=== PATIENT | male | born 1965 | race Caucasian/White ===

== ENCOUNTER 2022-01-30 01:13 | Day surgery (SDC) | payer OTHER, SELFPAY ==
[2022-01-23 13:46] VITALS: BMI 35.1
[2022-01-30 08:07] VITALS: BP 136/72; PULSE 61; RESP 18; TEMP 36.1; O2SAT 99
[2022-01-30 08:07] LABS: Glucose Point of Care 148 mg/dl (65-105)
[2022-01-30] MEDS: LACTATED RINGERS 1,000 ML 150 ML IV CONT (08:09)
--- NOTE | 2022-01-30 09:11 | PM.HPGS ---
History of Present Illness History of Present Illness Consent: Risks, benefits, and alternatives have been discussed and questions answered. Patient agrees to proceed with procedure. Chief complaint: hx colon polyps Narrative: Armond Agrawal is a 57 year old male Presents for follow-up screening colonoscopy. Patient's current weight appetite bowel movements are normal. Patient denies abdominal pain. He has had no bleeding. Previous colonoscopy more than 5 years ago revealed benign colon polyp. Patient presents today for surveillance colonoscopy. History is noncontributory. Review of Systems Review of Systems: Review of systems noncontributory. [facility] Past Medical History Medical History BMI 30.0-30.9,adult CAD (coronary artery disease) w/ stent 2014 CAD (coronary artery disease) Diabetes History of [place] (myocardial infarction) HLD (hyperlipidemia) Hypertension Sleep apnea Surgical History Surgical History Status post ablation of atrial fibrillation Family History Family History Mother Hypertension Family history of migraine headaches Father Family history of diabetes mellitus in first degree relative Family history of heart disease in male family member before age 55 Acute myocardial infarction, Onset Age: 45 Family history of sleep apnea Diabetes mellitus Family history of cardiovascular disease Grandparent Diabetes mellitus Family history of cardiovascular disease Sibling Hypertension Social History Social History Smoking status: Never smoker Second hand tobacco smoke exposure: No Alcohol intake: current Drinks per week: 8 Alcohol use details: BEER Substance use: never Substance use type: does not use Living arrangements: with family Gender identity (if verbalized by the patient): Male Spiritual care concerns: No Agree to blood products: Yes Meds Home Medications and Allergies Home Medications Medication Instructions Recorded Confirmed Type aspirin 81 mg tablet,delayed 81 mg PO DAILY 11/11/19 01/30/22 History release carvedilol 6.25 mg tablet 6.25 mg PO Q12H 11/11/19 01/30/22 History lisinopril 40 mg tablet 40 mg PO DAILY 11/11/19 01/30/22 History spironolactone 25 mg tablet 25 mg PO DAILY 04/28/20 01/30/22 History evolocumab 140 mg/mL subcutaneous 140 mg subcut .q2w 11/14/20 01/30/22 History pen injector (Ivan Roa) metformin 500 mg tablet 1,000 mg PO BID #360 tabs 06/05/21 01/30/22 Rx sildenafil 100 mg tablet (Viagra) 100 mg PO DAILY PRN sexual 06/05/21 01/30/22 Rx activity #27 tabs apixaban 5 mg tablet (Eliquis) 5 mg PO BID 01/23/22 01/30/22 History atorvastatin 40 mg tablet 40 mg PO DAILY 01/23/22 01/30/22 History Allergies Allergy/AdvReac Type Severity Reaction Status Date / Time No Known Allergies Allergy Verified 01/30/22 08:05 Vital Signs Vital Signs - 24 hr 01/30/22 08:07 Temperature 96.9 F L Pulse Rate 61 Respiratory Rate 18 Blood Pressure 136/72 Pulse Oximetry 99 Oxygen Delivery Room Air Exam Narrative: Physical exam reveals patient to be alert. Vital signs stable. HEENT exam is unremarkable. Patient is anicteric. Lungs are clear to auscultation and percussion. Heart is without murmur or extra sounds. Abdomen bowel sounds are present soft nontender with no organomegaly. Digital external rectal exam normal. Assessment and Plan Assessment and plan (1) History of colon polyps: Code(s): Z86.010 - Personal history of colonic polyps Status: Acute Assessment and Plan: Patient has a history of colon polyps by previous colonoscopy. Colonoscopy to be performed today for follow-up. Further recommendations will be given after endoscopy.
--- NOTE | 2022-01-30 09:13 | WPDANESEPPF ---
Anes - Initial Pre Proc Eval Procedure: Operation Date: 01/30/22 09:15 Proposed Procedures p Screening Colonoscopy - Dharmesh Lanza MD Date/Time: 01/30/22 09:13 Surgeon: Dharmesh Lanza MD Pre Op Diagnosis: hx colon polyps Patient Data Age: 57 Gender: M Height: 1.78 m Weight: 108.1 kg Last Vital Signs Temp 96.9 F L 01/30/22 08:07 Pulse 61 01/30/22 08:07 Resp 18 01/30/22 08:07 BP 136/72 01/30/22 08:07 Pulse Ox 99 01/30/22 08:07 O2 Del Method Room Air 01/30/22 08:07 Allergies Allergy/AdvReac Type Severity Reaction Status Date / Time No Known Allergies Allergy Verified 01/30/22 08:05 Home Medications Medication Instructions Recorded Confirmed Type aspirin 81 mg tablet,delayed 81 mg PO DAILY 11/11/19 01/30/22 History release carvedilol 6.25 mg tablet 6.25 mg PO Q12H 11/11/19 01/30/22 History lisinopril 40 mg tablet 40 mg PO DAILY 11/11/19 01/30/22 History spironolactone 25 mg tablet 25 mg PO DAILY 04/28/20 01/30/22 History evolocumab 140 mg/mL subcutaneous 140 mg subcut .q2w 11/14/20 01/30/22 History pen injector (Repatha SureIanick) metformin 500 mg tablet 1,000 mg PO BID #360 tabs 06/05/21 01/30/22 Rx sildenafil 100 mg tablet (Viagra) 100 mg PO DAILY PRN sexual 06/05/21 01/30/22 Rx activity #27 tabs apixaban 5 mg tablet (Eliquis) 5 mg PO BID 01/23/22 01/30/22 History atorvastatin 40 mg tablet 40 mg PO DAILY 01/23/22 01/30/22 History Laboratory Tests 01/30/22 08:03 POC Capillary Glucose 148 mg/dl H mg/dl (65-105) Patient hx anesthesia problems: none Family hx anesthesia problems: none Results Review: All pre-operative results and documents have been reviewed as part of the pre-operative evaluation. [facility] Past Medical History Medical History BMI 30.0-30.9,adult CAD (coronary artery disease) w/ stent 2014 CAD (coronary artery disease) Diabetes History of [place] (myocardial infarction) HLD (hyperlipidemia) Hypertension Sleep apnea Surgical History Surgical History Status post ablation of atrial fibrillation Family History Family History Mother Hypertension Family history of migraine headaches Father Family history of diabetes mellitus in first degree relative Family history of heart disease in male family member before age 55 Acute myocardial infarction, Onset Age: 45 Family history of sleep apnea Diabetes mellitus Family history of cardiovascular disease Grandparent Diabetes mellitus Family history of cardiovascular disease Sibling Hypertension Social History Social History Smoking status: Never smoker Second hand tobacco smoke exposure: No Alcohol intake: current Drinks per week: 8 Alcohol use details: BEER Substance use: never Substance use type: does not use Living arrangements: with family Gender identity (if verbalized by the patient): Male Spiritual care concerns: No Agree to blood products: Yes Anes - Eval Final PreProcedure Day of Procedure 01/30/22 09:13 Patient weight: obese Heart: regular rate and rhythm Lungs: clear to auscultation Neurological: alert and oriented Last oral intake: >/= 8 hours ASA classification: III Emergent: no Anesthetic plan: proceed Anesthesia type and monitoring: general GIVS and standard monitoring Results Review: All pre-operative results and documents have been reviewed as part of the pre-operative evaluation. Informed Consent: The patient's anesthetic plan and its attendant risks and benefits were discussed with the patient/family/POA. Questions were solicited and answers provided to the satisfaction of the patient/family/POA.
[2022-01-30] MEDS: SIMETHICONE ORAL SUSPENSION 20 MG/0.3 ML 30 ML BOTTLE 0.6 ML IRRIGATION (09:58)
[2022-01-30 10:20] VITALS: BP 104/70; PULSE 59; RESP 22; O2SAT 96
[2022-01-30 10:30] VITALS: BP 121/79; PULSE 54; RESP 20; O2SAT 100
[2022-01-30 10:40] VITALS: BP 118/80; PULSE 56; RESP 17; O2SAT 99
== END 2022-01-30 10:49 | disposition home or self-care (01) ==
PROVIDERS: PCP Family Medicine; Visit Provider Internal Medicine Gastroenterology
PROC: 0DJD8ZZ Inspection of Lower Intestinal Tract, Via Natural or Artificial Opening Endoscopic (ICD-10-PCS; CPT 45378; principal; 2022-01-30 09:15)
DX: Z12.11 Encounter for screening for malignant neoplasm of colon (principal); D12.0 Benign neoplasm of cecum; K64.8 Other hemorrhoids; Z79.01 Long term (current) use of anticoagulants; Z79.82 Long term (current) use of aspirin; Z79.84 Long term (current) use of oral hypoglycemic drugs; I25.10 Atherosclerotic heart disease of native coronary artery without angina pectoris; E11.9 Type 2 diabetes mellitus without complications; I25.2 Old myocardial infarction; I10 Essential (primary) hypertension; E78.5 Hyperlipidemia, unspecified; G47.30 Sleep apnea, unspecified; E66.9 Obesity, unspecified; Z68.34 Body mass index [BMI] 34.0-34.9, adult
CPT/HCPCS: 45380; 45381; 82948; 88305; J2001; J2704; J7120

== ENCOUNTER 2022-04-12 07:55 | Outpatient (CLI) | payer OTHER, SELFPAY ==
[2022-04-12 09:13] LABS: Anion Gap 6 mmol/L (8-16); Blood Urea Nitrogen 17 mg/dL (9-20); Calcium 9.4 mg/dL (8.4-10.2); Carbon Dioxide 31 mmol/L (22-30); Chloride 102 mmol/L (98-107); Estimated Glomerular Filt Rate > 60; Glucose 138 mg/dL (65-110); Potassium 5.2 mmol/L (3.4-5.0); Sodium 139 mmol/L (137-145)
[2022-04-12 09:18] LABS: Hematocrit 42.2 % (42.0-52.0); Hemoglobin 13.7 g/dL (14.0-18.0)
[2022-04-12 09:45] LABS: Carcinoembryonic Antigen 4.5 ng/mL (0.0-3.0)
== END 2022-04-12 07:56 | disposition home or self-care (01) ==
PROVIDERS: Anesthesiology; PCP Family Medicine; Visit Provider Surgery
DX: E11.9 Type 2 diabetes mellitus without complications (principal); D12.6 Benign neoplasm of colon, unspecified
CPT/HCPCS: 36415; 80048; 82378; 85014; 85018; 86850; 86900; 86901

== ENCOUNTER 2022-04-25 13:35 | Inpatient (IN) | payer OTHER, SELFPAY ==
[2022-04-12 07:53] VITALS: BP 128/80; PULSE 56; RESP 20; TEMP 36.8; O2SAT 99; BMI 36.0
--- NOTE | 2022-04-12 07:54 | PC.NURSE ---
PRE-OP INSTRUCTIONS, PLEASE READ CAREFULLY Report to the Outpatient Waiting Room, entrance under the green pavilion located off [facility], at time _0600_ on date _04/25/22_. Planned Procedure Time: _0730_. PACK A SMALL OVERNIGHT BAG AND LEAVE IN THE CAR Time changes happen often and if your time is changed the preop area will call you the afternoon before. - You and your visitor will be asked to self-screen and do not enter if you have any COVID symptoms. - Only one visitor is requested with a max of two and NO children visitors are allowed at this time. - The patient visitor may be requested to leave or wait in car when not with patient due to distancing restrictions. - A mask is optional within the hospital. -VISITING HOURS 8AM-8PM Patients may have clear liquids (water, carbonated beverages, clear teas, apple juice) until 3 hours prior to surgery (0430 AM) with a maximum of 20 ounces. - No food from midnight until time of surgery Take the following medications with a SIP of water the morning of surgery: _CARVEDILOL, ASPIRIN-PER _ Medications to discontinue per VALUATION CONSULTANT -_ELIQUIS 3 DAYS PRIOR TO SURGERY, Date to take last dose 04/21/22_ Please no deodorant, or body powder the day of surgery. No jewelry (including any body piercings) or valuables the day of surgery, leave them at home. Please take a shower or bath the night before, or the morning of, surgery with an antibacterial soap. Wear comfortable, loose fitting clothing. - Jewelry must be removed prior to entering the operating room. Rings and piercings that are not removed may be cut off. - The hospital will not accept responsibility for valuables. - Please leave all valuables, including medications, at home the day of surgery. If you are going home after surgery, a licensed petroleum transport driver must drive you home. - NO public transportation without another adult if you receive anesthesia. - We recommend that an adult stay with you for 24 hours following discharge. - We also recommend that you do not drive, make important decision, drink alcoholic beverages, or take any drugs that were not prescribed by your health care provider for at least 24 hours after your discharge time. Follow any additional instructions given to you from your surgeon. DIET, BOWEL PREP, PRE-OP ANTIBIOTICS, HIBICLENS SHOWER NIGHT BEFORE AND AM OF SURGERY If you or anyone in your household have experienced Covid symptoms in the past week, please notify your surgeon or the nurse liaison at the phone number below for possible testing. Instructions given to _PATIENT_and asked if any additional questions and then verbalized understanding. Patient advised to call surgeon office or pre surgery nurse liaison [phone] if any additional questions.
--- NOTE | 2022-04-24 09:22 | WPDANESEPPF ---
Anes - Initial Pre Proc Eval Procedure: Operation Date: 04/25/22 07:30 Proposed Procedures p Laparoscopic Right Hemicolectomy Davinci Assisted, - Indra Flood DO s Open Umbilical Hernia Repair - Indra Flood DO Date/Time: 04/24/22 09:22 Surgeon: Inrda Flood DO Pre Op Diagnosis: tubular adeonoma of colon, umbilical hernia Patient Data Age: 57 Gender: M Height: 1.78 m Weight: 113.9 kg Last Vital Signs Temp 36.8 C 04/12/22 07:53 Pulse 56 L 04/12/22 07:53 Resp 20 04/12/22 07:53 BP 128/80 04/12/22 07:53 Pulse Ox 99 04/12/22 07:53 O2 Del Method Room Air 04/12/22 07:53 Allergies Allergy/AdvReac Type Severity Reaction Status Date / Time No Known Allergies Allergy Verified 04/25/22 06:31 Home Medications Medication Instructions Recorded Confirmed Type aspirin 81 mg tablet,delayed 81 mg PO DAILY 11/11/19 04/25/22 History release carvedilol 6.25 mg tablet 6.25 mg PO Q12H 11/11/19 04/25/22 History lisinopril 40 mg tablet 40 mg PO DAILY 11/11/19 04/25/22 History spironolactone 25 mg tablet 25 mg PO DAILY 04/28/20 04/25/22 History evolocumab 140 mg/mL subcutaneous 140 mg subcut .q2w 11/14/20 04/25/22 History pen injector (Ivan Roa) metformin 500 mg tablet 1,000 mg PO BID #360 tabs 06/05/21 04/25/22 Rx sildenafil 100 mg tablet (Viagra) 100 mg PO DAILY PRN sexual 06/05/21 04/12/22 Rx activity #27 tabs apixaban 5 mg tablet (Eliquis) 5 mg PO BID 01/23/22 04/25/22 History atorvastatin 40 mg tablet 40 mg PO DAILY 01/23/22 04/25/22 History erythromycin 500 mg tablet See Rx Instructions .Route 03/02/22 04/25/22 Rx .COMPLEX #6 tabs Patient hx anesthesia problems: none Family hx anesthesia problems: none Results Review: All pre-operative results and documents have been reviewed as part of the pre-operative evaluation. [facility] Past Medical History Medical History (Updated 04/24/22 @ 09:24 by Don Sun DO) A-fib BMI 30.0-30.9,adult CAD (coronary artery disease) w/ stent 2014 CAD (coronary artery disease) Diabetes Diabetes type 2, controlled GERD (gastroesophageal reflux disease) History of [place] (myocardial infarction) HLD (hyperlipidemia) Hypertension CRISTINA (obstructive sleep apnea) CPAP Phrenic nerve lesion s/p cardiac ablation Sleep apnea Surgical History Surgical History (Updated 04/24/22 @ 09:24 by Don Sun DO) History of coronary artery stent placement x3, 2014 Status post ablation of atrial fibrillation Family History Family History Mother Hypertension Family history of migraine headaches Father Family history of diabetes mellitus in first degree relative Family history of heart disease in male family member before age 55 Acute myocardial infarction, Onset Age: 45 Family history of sleep apnea Diabetes mellitus Family history of cardiovascular disease Grandparent Diabetes mellitus Family history of cardiovascular disease Sibling Hypertension Social History Social History Smoking status: Never smoker Second hand tobacco smoke exposure: No Alcohol intake: current Drinks per week: 8 Alcohol use details: GABBI Substance use: never Substance use type: does not use Living arrangements: with family Gender identity (if verbalized by the patient): Male Spiritual care concerns: No Agree to blood products: Yes Anes - Eval Final PreProcedure Day of Procedure 04/24/22 09:22 Patient weight: obese Heart: regular rate and rhythm Lungs: clear to auscultation Airway: Mallampati scale class II Neurological: alert and oriented Last oral intake: >/= 8 hours ASA classification: III Emergent: no Anesthetic plan: proceed Anesthesia type and monitoring: general ETT and standard monitoring Results Review: All pre-operative results and documents have been revie
[2022-04-25] VITALS (18 sets, daily range): BP systolic 96–138; BP diastolic 57–79; PULSE 66–93; RESP 16–20; TEMP 36.1–37.1; O2SAT 91–100; BMI 34.4
[2022-04-25] MEDS: ACETAMINOPHEN 500 MG TABLET 1000 MG PO ×3 (06:33→23:48)
[2022-04-25] MEDS: KETOROLAC 15 MG/ML VIAL (*BKC) IV PUSH (07:12)
[2022-04-25] MEDS: LACTATED RINGERS 1,000 ML 30 ML IV CONT ×2 (07:12→11:14)
--- NOTE | 2022-04-25 07:20 | WPDHPUPDATE1 ---
History and Physical Update Update Date/Time: 04/25/22 07:20 History and Physical has been reviewed, including an updated exam of the patient. There are NO changes in the patient's condition. Risks, benefits, and alternatives have been discussed and questions answered. Patient agrees to proceed with procedure.
[2022-04-25 07:21] LABS: Glucose Point of Care 163 mg/dl (65-105)
--- NOTE | 2022-04-25 07:21 | PM.IMHP ---
H&P: HPI History of Present Illness Date/Time: 04/25/22 07:21 Chief Complaint: adenoma of cecum Narrative: 57 yo man presents for right hemicolectomy for a cecal polyp. He also has an umbilical hernia. Review of Systems Review of Systems: All systems reviewed & are unremarkable except as noted in HPI and below Constitutional: Constitutional: Denies chills, Denies fever(s), Denies headache(s) and Denies weight loss Eyes: Eyes: Denies change in vision ENT: Denies dizziness, Denies headache(s), Denies neck mass and Denies throat swelling Cardiovascular: Cardiovascular: Denies chest pain, Denies lightheadedness and Denies dyspnea Respiratory: Respiratory: Denies cough, Denies dyspnea and Denies wheezing Gastrointestinal: Gastrointestinal: Denies abdominal pain, Denies change in bowel habits, Denies nausea and Denies vomiting Genitourinary: Genitourinary: Denies hematuria and Denies dysuria Musculoskeletal: Musculoskeletal: Reports as per HPI Integumentary/Breasts: Skin/Breast: Reports as per HPI Neurologic: Denies dizziness and Denies headache(s) Allergic/Immunologic: Allergic/Immunologic: Denies throat swelling and Denies wheezing [facility] Past Medical History Medical History (Updated 04/24/22 @ 09:24 by Don Sun DO) A-fib BMI 30.0-30.9,adult CAD (coronary artery disease) w/ stent 2014 CAD (coronary artery disease) Diabetes Diabetes type 2, controlled GERD (gastroesophageal reflux disease) History of [place] (myocardial infarction) HLD (hyperlipidemia) Hypertension CRISTINA (obstructive sleep apnea) CPAP Phrenic nerve lesion s/p cardiac ablation Sleep apnea Surgical History Surgical History (Updated 04/24/22 @ 09:24 by Don Sun DO) History of coronary artery stent placement x3, 2014 Status post ablation of atrial fibrillation Family History Family History Mother Hypertension Family history of migraine headaches Father Family history of diabetes mellitus in first degree relative Family history of heart disease in male family member before age 55 Acute myocardial infarction, Onset Age: 45 Family history of sleep apnea Diabetes mellitus Family history of cardiovascular disease Grandparent Diabetes mellitus Family history of cardiovascular disease Sibling Hypertension Social History Social History Smoking status: Never smoker Second hand tobacco smoke exposure: No Alcohol intake: current Drinks per week: 8 Alcohol use details: BEERS Substance use: never Substance use type: does not use Living arrangements: with family Gender identity (if verbalized by the patient): Male Spiritual care concerns: No Agree to blood products: Yes Meds Home Medications and Allergies Home Medications Medication Instructions Recorded Confirmed Type aspirin 81 mg tablet,delayed 81 mg PO DAILY 11/11/19 04/25/22 History release carvedilol 6.25 mg tablet 6.25 mg PO Q12H 11/11/19 04/25/22 History lisinopril 40 mg tablet 40 mg PO DAILY 11/11/19 04/25/22 History spironolactone 25 mg tablet 25 mg PO DAILY 04/28/20 04/25/22 History evolocumab 140 mg/mL subcutaneous 140 mg subcut .q2w 11/14/20 04/25/22 History pen injector (Ivan Roa) metformin 500 mg tablet 1,000 mg PO BID #360 tabs 06/05/21 04/25/22 Rx sildenafil 100 mg tablet (Viagra) 100 mg PO DAILY PRN sexual 06/05/21 04/12/22 Rx activity #27 tabs apixaban 5 mg tablet (Eliquis) 5 mg PO BID 01/23/22 04/25/22 History atorvastatin 40 mg tablet 40 mg PO DAILY 01/23/22 04/25/22 History erythromycin 500 mg tablet See Rx Instructions .Route 03/02/22 04/25/22 Rx .COMPLEX #6 tabs Allergies Allergy/AdvReac Type Severity Reaction Status Date / Time No Known Allergies Allergy Verified 04/25/22 06:31 Vital Signs Vital Signs - 24 hr 04/25/22 07:13 Temperature 37.1 C
[2022-04-25] MEDS: ceFAZolin 2 GM/D5W 50 ML 2 GM/50 ML BAG IVPB (07:32)
[2022-04-25] MEDS: metroNIDAZOLE 500 MG/ISO 100ML 500 MG/100 ML BAG 100 MG IVPB (07:45)
[2022-04-25] MEDS: INDOCYANINE GREEN 25 MG VIAL IV PUSH (09:32)
--- NOTE | 2022-04-25 10:52 | W.PM.PROC2 ---
Procedure Note - Detailed Date of Procedure 04/25/22 Pre-op Diagnosis tubular adeonoma of colon, umbilical hernia Post-op Diagnosis Same Procedure Performed 1. Laparoscopic right hemicolectomy with ileocolic anastomosis, da Chinyere assisted 2. Open 2cm umbilical hernia repair Surgeon Indra Flood, DO Anesthesia General and Local (Exparel) Indications This is a 57-year-old man who presented with a cecal polyp found on colonoscopy recently. He underwent colonoscopy on 01/30/2022 was found to have a large polyp at the cecum. Biopsies showed evidence of tubular adenoma. Discussions were made with the patient about treatment options and decision was made to proceed with robotic assisted laparoscopic right hemicolectomy. Patient also had a small umbilical hernia and decision was made to proceed with umbilical hernia repair at the same time. Findings Robotic assisted laparoscopic right hemicolectomy was performed. The tattooed region was identified on the cecum. No other intra-abdominal abnormalities were noted. A high ligation the ileocolic pedicle was performed. Once adequate mobilization was performed and the mesocolon and mesentery was taken down to the point of transection, ICG was then used to confirm adequate perfusion to the proximal and distal resection locations. An isoperistaltic [id number] ileocolic anastomosis was performed. ICG was then also used to confirm adequate perfusion to the anastomosis prior to closure. The specimen was delivered through the umbilical hernia with a wound protector. I did have to extend the fascia about 1 cm cephalad to allow for extraction of the specimen. The umbilical hernia measured about 2 cm. This was repaired primarily using 0 Ethibond [id number] sutures. The right colon was sent to the lab for pathology. Description of Procedure Procedure as well as risks, benefits, and alternatives were discussed with the patient.? Written consent was obtained and placed in chart prior to procedure.? Patient was brought back to surgical suite.? He was placed supine on operating table.? Time-out was done to confirm patient and procedure.? He was then intubated by the anesthesia department.? His abdomen was prepped and draped in sterile fashion using chlorhexidine prep.? An 8 mm incision was made in the left upper quadrant and a 5 mm Optiview trocar was advanced through the abdominal layers under direct visualization.? Once inside the abdominal cavity, carbon dioxide insufflation was used to create a pneumoperitoneum.? Camera was inserted in the abdomen was inspected.? The patient was placed in 8 degree reverse Trendelenburg and 10? rotated left an 8 mm incision was made in the suprapubic region in midline and an 8 mm trocar was inserted under direct visualization another 8 mm incision was made in the umbilical region just inferior into the left of the umbilicus and an 8 mm trocar was inserted under direct visualization.? A 12 mm incision was made in the left lateral abdomen and a 12 mm trocar was inserted under direct visualization.? An 8 mm incision was made in the left lower quadrant and an 8 mm assist port was placed under direct visualization.? The 5 mm port was then removed and exchanged for an 8 mm port.? The robotic arms were then brought up to the patient's bedside and secured to the ports.? The camera and instruments were then inserted.? I then moved over to the robotic console and took control of the camera and instruments.? Thorough inspection was made around the abdominal cavity.? The omentum was then reflected cephalad over the transverse colon.? The area near the ileocecal valve was grasped and retracted anterior and laterally to tent up the ileocolic pedicle.? Scissors with electrocautery were then used to perform the medial to lateral dissection.? I entered into the avascular plane just inferior to the ileocolic pedicle and carefully dissected cephalad to identify the duodenum.? Once the duodenum was identified and
[2022-04-25 11:23] LABS: Glucose Point of Care 180 mg/dl (65-105)
--- NOTE | 2022-04-25 12:23 | SUR.PHASEI ---
Patient meets PACU discharge criteria, unit bed unavailable at this time. Patient placed in extended recovery status.
--- NOTE | 2022-04-25 13:47 | ADMGEN ---
This patient, Armond Agrawal, was admitted to Medical Room 342-01. Patient/family oriented to hospital policies and general routines including ID bracelet, bed and alarms, visiting hours, pain management, procedures, bathroom and other care routines, personal items, smoking policy, room service/diet, and visiting hours. Information on how to activate the Rapid Response Team has been discussed. Patient/Family are encouraged to report perceived risks to care and to ask questions if they do not understand what they are told or what they should do.
[2022-04-25] MEDS: LACTATED RINGERS 1,000 ML 100 ML IV CONT (14:10)
[2022-04-25] MEDS: oxyCODONE HCL (*CRX) 5 MG TAB IR PO ×2 (15:28→20:10)
[2022-04-25 17:16] LABS: Glucose Point of Care 203 mg/dl (65-105)
[2022-04-25] MEDS: carvediloL 6.25 MG TABLET PO (20:10)
[2022-04-25 20:56] LABS: Glucose Point of Care 243 mg/dl (65-105)
[2022-04-26] MEDS: LACTATED RINGERS 1,000 ML 100 ML IV CONT (00:30)
[2022-04-26 04:12] VITALS: BP 124/68; PULSE 73; RESP 18; TEMP 36.2; O2SAT 96
[2022-04-26 05:58] LABS: Basophils Percent Auto 0.2 % (0.2-1.2); Hematocrit 39.4 % (42.0-52.0); Hemoglobin 13.2 g/dL (14.0-18.0); Immature Granulocyte Absolute 0.04 K/mm3 (0.00-0.031); Immature Granulocyte Percent A 0.3 % (0-0.5); Lymphocytes Absolute Auto 1.04 K/mm3 (0.9-3.2); Lymphocytes Percent Auto 8.8 % (18.3-44.2); Mean Corpuscular HGB Conc 33.5 g/dl (32-36); Mean Corpuscular Hemoglobin 30.7 pg (26-34); Mean Corpuscular Volume 91.6 fl (80-100); Mean Platelet Volume 10.7 fl (7.4-10.4); Monocytes Absolute Auto 1.4 K/mm3 (0.1-0.6); Monocytes Percent Auto 11.7 % (2.6-8.5); Neutrophils Absolute Auto 9.3 K/mm3 (1.3-6.7); Platelet Count Result 200 k/mm3 (150-375); Red Cell Distribution Width 13.5 % (11.5-14.5); White Blood Count 11.8 K/mm3 (4.5-10.0)
[2022-04-26] MEDS: ACETAMINOPHEN 500 MG TABLET 1000 MG PO ×3 (06:01→17:33)
[2022-04-26 06:14] LABS: Anion Gap 6 mmol/L (8-16); Blood Urea Nitrogen 13 mg/dL (9-20); Calcium 8.7 mg/dL (8.4-10.2); Carbon Dioxide 27 mmol/L (22-30); Chloride 103 mmol/L (98-107); Estimated CRCL calculation 125 ml/min; Estimated Glomerular Filt Rate > 60; Glucose 152 mg/dL (65-110); Potassium 4.4 mmol/L (3.4-5.0); Sodium 136 mmol/L (137-145)
[2022-04-26] MEDS: ATORVASTATIN 40 MG TABLET PO (08:29)
[2022-04-26 08:30] VITALS: PULSE 81
[2022-04-26] MEDS: ASPIRIN 81 MG ENTERIC TABLET PO (08:30)
[2022-04-26] MEDS: SPIRONOLACTONE 25 MG TABLET PO (08:30)
[2022-04-26] MEDS: ENOXAPARIN 40 MG/0.4 ML SYRINGE SUB-Q (08:30)
[2022-04-26] MEDS: carvediloL 6.25 MG TABLET PO (08:30)
[2022-04-26 08:59] LABS: Glucose Point of Care 115 mg/dl (65-105)
--- NOTE | 2022-04-26 11:09 | PM.PNGS ---
Progress Note: A&P Assessment and Plan (1) Tubular adenoma of colon: Code(s): D12.6 - Benign neoplasm of colon, unspecified Status: Acute Assessment and Plan: Doing well on POD#1 Advance to full liquids, then soft diet for dinner Increase activity Await return of bowel function Final path pending (2) Umbilical hernia without mention of obstruction or gangrene: Code(s): K42.9 - Umbilical hernia without obstruction or gangrene Status: Acute Assessment and Plan: Repaired with colon resection (3) A-fib: Code(s): I48.91 - Unspecified atrial fibrillation Status: Acute (4) [facility] current use of anticoagulant: Code(s): 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 Subjective Subjective Date/Time Seen: 04/26/22 11:09 Interval history: Tolerating clear liquids. Pain controlled. No fevers. No BM or flatus yet. Ambulating without much difficulty. Exam GI: Inspection: incision (intact with glue) GI Palp: Yes Soft to palpation, Yes Tenderness to palpation present (GI) (incisional) and No Guarding due to palpation present (GI) Percussion: Yes normal to percussion Auscultation: normal bowel sounds Objective Data Vital Signs Vital Signs: Vital Signs - 24 hr 04/25/22 11:14 04/25/22 11:30 04/25/22 11:45 Temperature 36.5 C Pulse Rate 86 83 76 Respiratory Rate 16 17 18 Blood Pressure 116/63 96/57 L 100/64 Pulse Oximetry 98 100 94 Oxygen Delivery Simple Face Mask Simple Face Mask Room Air Oxygen Flow Rate 6 8 04/25/22 12:00 04/25/22 12:15 04/25/22 12:30 Temperature Pulse Rate 80 83 87 Respiratory Rate 18 18 16 Blood Pressure 100/62 103/59 L 103/64 Pulse Oximetry 91 97 96 Oxygen Delivery Room Air Nasal Cannula Nasal Cannula Oxygen Flow Rate 2 2 04/25/22 13:00 04/25/22 13:30 04/25/22 13:55 Temperature Pulse Rate 91 89 89 Respiratory Rate 16 20 20 Blood Pressure 111/73 119/73 Pulse Oximetry 98 98 98 Oxygen Delivery Nasal Cannula Nasal Cannula Nasal Cannula Oxygen Flow Rate 2 2 2 04/25/22 13:50 04/25/22 14:05 04/25/22 14:35 Temperature 36.2 C L 36.3 C L 36.3 C L Pulse Rate 84 86 93 Respiratory Rate 16 18 16 Blood Pressure 128/71 138/79 119/68 Pulse Oximetry 96 98 98 Oxygen Delivery Oxygen Flow Rate 04/25/22 15:35 04/25/22 20:10 04/25/22 20:00 Temperature 36.1 C L Pulse Rate 89 80 80 Respiratory Rate 16 16 Blood Pressure 111/65 Pulse Oximetry 96 96 Oxygen Delivery Room Air Oxygen Flow Rate 04/25/22 20:41 04/25/22 23:53 04/26/22 04:12 Temperature 36.3 C L 36.2 C L 36.2 C L Pulse Rate 90 83 73 Respiratory Rate 16 18 18 Blood Pressure 124/70 120/75 124/68 Pulse Oximetry 97 95 96 Oxygen Delivery Oxygen Flow Rate 04/26/22 08:30 04/26/22 08:00 Temperature Pulse Rate 81 Respiratory Rate Blood Pressure Pulse Oximetry Oxygen Delivery Room Air Oxygen Flow Rate Intake/Output Intake/Output: Intake & Output 04/23/22 04/24/22 04/25/22 04/26/22 23:59 23:59 23:59 23:59 Intake Total 1750 1880 Output Total 1200 Balance 1750 680 Meds/Results Medications: Active Medications Generic Name Dose Route Start Last Admin Trade Name Freq PRN Reason Stop Dose Admin Acetaminophen 1,000 mg 04/25/22 18:00 04/26/22 06:01 Acetaminophen 500 Mg Tablet PO 1,000 mg Q6HR VELVET Administration Aspirin 81 mg 04/26/22 09:00 04/26/22 08:30 Aspirin 81 Mg Enteric Tablet PO 81 mg DAILY VELVET Administration Atorvastatin Calcium 40 mg 04/26/22 09:00 04/26/22 08:29 Atorvastatin 40 Mg Tablet PO 40 mg DAILY VELVET Administration Carvedilol 6.25 mg 04/25/22 21:00 04/26/22 08:30 Carvedilol 6.25 Mg Tablet PO 6.25 mg Q12H VELVET Administration Enoxaparin Sodium 40 mg 04/26/22 09:00 04/26/22 08:30 Enoxaparin 40 Mg/0.4
[2022-04-26 12:18] LABS: Glucose Point of Care 163 mg/dl (65-105)
--- NOTE | 2022-04-26 13:28 | WPDANESPN ---
Anes - Prog Note Post-Op Date/Time: 04/26/22 13:28 Cardiovascular status: normal Respiratory status: normal Airway patency: baseline Mental status: baseline Post-Op hydration status: normal Vital Signs: Last Vital Signs Temp 36.2 C L 04/26/22 04:12 Pulse 81 04/26/22 08:30 Resp 18 04/26/22 04:12 BP 124/68 04/26/22 04:12 Pulse Ox 96 04/26/22 04:12 O2 Del Method Room Air 04/26/22 08:00 O2 Flow Rate 2 04/25/22 13:55 Pain Score (VAS): 05/25 I/O: Intake & Output 04/25/22 04/26/22 04/26/22 23:59 07:59 15:59 Intake Total 800 1400 480 Output Total 1200 Balance 800 200 480 Laboratory Tests 04/26/22 05:49 04/26/22 05:49 04/25/22 04/25/22 04/26/22 17:14 20:44 05:49 WBC 11.8 H RBC 4.30 L Hgb 13.2 L Hct 39.4 L MCV 91.6 MCH 30.7 MCHC 33.5 RDW 13.5 Plt Count 200 MPV 10.7 H Immature Gran % (Auto) 0.3 Neut % (Auto) 79.0 H Lymph % (Auto) 8.8 L [place] % (Auto) 11.7 H Eos % (Auto) 0.0 Baso % (Auto) 0.2 Lymph # (Auto) 1.04 [place] # (Auto) 1.4 H Eos # (Auto) 0.0 Baso # (Auto) 0.0 Abs Immat Gran (auto) 0.04 H Absolute Neuts (auto) 9.3 H Absolute Nucleated RBC 0.0 Nucleated RBC % 0.0 Sodium Potassium Chloride Carbon Dioxide Anion Gap BUN Creatinine Estim Creat Clear Calc Estimated GFR Glucose POC Capillary Glucose 203 H 243 H Calcium 04/26/22 04/26/22 04/26/22 05:49 08:55 12:15 WBC RBC Hgb Hct MCV MCH MCHC RDW Plt Count MPV Immature Gran % (Auto) Neut % (Auto) Lymph % (Auto) [place] % (Auto) Eos % (Auto) Baso % (Auto) Lymph # (Auto) [place] # (Auto) Eos # (Auto) Baso # (Auto) Abs Immat Gran (auto) Absolute Neuts (auto) Absolute Nucleated RBC Nucleated RBC % Sodium 136 L Potassium 4.4 Chloride 103 Carbon Dioxide 27 Anion Gap 6 L BUN 13 Creatinine 0.70 Estim Creat Clear Calc 125 Estimated GFR > 60 Glucose 152 H POC Capillary Glucose 115 H 163 H Calcium 8.7 Post-procedural complaints: none Patient Feedback: Patient satisfied with anesthetic care.
--- NOTE | 2022-04-26 13:34 | P.PNAN_ITS ---
Anes - Prog Note Post-Op Date/Time: 04/26/22 13:34 Cardiovascular status: normal Respiratory status: normal Airway patency: baseline Mental status: baseline Post-Op hydration status: normal Vital Signs: Last Vital Signs Temp 36.2 C L 04/26/22 04:12 Pulse 81 04/26/22 08:30 Resp 18 04/26/22 04:12 BP 124/68 04/26/22 04:12 Pulse Ox 96 04/26/22 04:12 O2 Del Method Room Air 04/26/22 08:00 O2 Flow Rate 2 04/25/22 13:55 Pain Score (VAS): 0 I/O: Intake & Output 04/25/22 04/26/22 04/26/22 23:59 07:59 15:59 Intake Total 800 1400 480 Output Total 1200 Balance 800 200 480 Laboratory Tests 04/26/22 05:49 04/26/22 05:49 04/25/22 04/25/22 04/26/22 17:14 20:44 05:49 WBC 11.8 H RBC 4.30 L Hgb 13.2 L Hct 39.4 L MCV 91.6 MCH 30.7 MCHC 33.5 RDW 13.5 Plt Count 200 MPV 10.7 H Immature Gran % (Auto) 0.3 Neut % (Auto) 79.0 H Lymph % (Auto) 8.8 L [place] % (Auto) 11.7 H Eos % (Auto) 0.0 Baso % (Auto) 0.2 Lymph # (Auto) 1.04 [place] # (Auto) 1.4 H Eos # (Auto) 0.0 Baso # (Auto) 0.0 Abs Immat Gran (auto) 0.04 H Absolute Neuts (auto) 9.3 H Absolute Nucleated RBC 0.0 Nucleated RBC % 0.0 Sodium Potassium Chloride Carbon Dioxide Anion Gap BUN Creatinine Estim Creat Clear Calc Estimated GFR Glucose POC Capillary Glucose 203 H 243 H Calcium 04/26/22 04/26/22 04/26/22 05:49 08:55 12:15 WBC RBC Hgb Hct MCV MCH MCHC RDW Plt Count MPV Immature Gran % (Auto) Neut % (Auto) Lymph % (Auto) [place] % (Auto) Eos % (Auto) Baso % (Auto) Lymph # (Auto) [place] # (Auto) Eos # (Auto) Baso # (Auto) Abs Immat Gran (auto) Absolute Neuts (auto) Absolute Nucleated RBC Nucleated RBC % Sodium 136 L Potassium 4.4 Chloride 103 Carbon Dioxide 27 Anion Gap 6 L BUN 13 Creatinine 0.70 Estim Creat Clear Calc 125 Estimated GFR > 60 Glucose 152 H POC Capillary Glucose 115 H 163 H Calcium 8.7 Post-procedural complaints: none Patient Feedback: Patient satisfied with anesthetic care.
[2022-04-26 14:00] VITALS: BP 146/76; PULSE 65; RESP 18; TEMP 36.9; O2SAT 98
--- NOTE | 2022-04-26 16:53 | PM.DS ---
DS: Admitting Diagnosis Discharge Date 04/26/2022 Admitting Diagnosis polyp of cecum, umbilical hernia, hypertension, type 2 diabetes, atrial fibrillation DS: Discharge Diagnosis Discharge Diagnosis (1) Tubular adenoma of colon: Code(s): D12.6 - Benign neoplasm of colon, unspecified Status: Acute (2) Umbilical hernia without mention of obstruction or gangrene: Code(s): K42.9 - Umbilical hernia without obstruction or gangrene Status: Acute (3) Diabetes: Code(s): E11.9 - Type 2 diabetes mellitus without complications Status: Acute (4) Hypertension: Code(s): I10 - Essential (primary) hypertension Status: Acute (5) A-fib: Code(s): I48.91 - Unspecified atrial fibrillation Status: Acute DS: Summary Hospital Course Reason for hospitalization: cecal polyp, umbilical hernia Hospital Course: this is a 57-year-old man who presented for colon resection for a tubular adenoma of the cecum. He had undergone a screening colonoscopy on 01/30/[address] Lanza. A large flat cecal polyp was identified and biopsied as well as tattooed. Biopsy showed evidence of tubular adenoma. He then presented on 04/25/2022 for robotic assisted laparoscopic right hemicolectomy and open umbilical hernia repair. Surgery was uncomplicated and patient was admitted to the surgical floor postoperatively. His diet and activity were gradually advanced as tolerated. He was placed on clear liquid diet initially after surgery and then on postop day 1 his diet was advanced to full liquids and then to a soft regular diet. He tolerated his dinner and pain was well controlled. He was passing flatus and denied any bloating or nausea with eating. He was discharged on postop day 1. Status at Discharge Functional status at discharge: independent ambulation Overall status at discharge: patient is progressing back to baseline Time Spent with Patient Time attestation: Total time spent providing and/or coordinating discharge services: Time spent: Less than 30 minutes Exam Const: General: no acute distress Orientation/consciousness: patient oriented x3 Resp: Effort & Inspection: normal respiratory effort Auscultation: clear to auscultation bilaterally Cardio: Rate: regular rate Rhythm: abnormal rhythm irregularly irregular GI: Inspection: incision ( Intact with glue) GI Palp: Yes Soft to palpation and Yes Tenderness to palpation present (GI) ( minimal incisional tenderness) Auscultation: normal bowel sounds DS: Data Data Completed and Pending Pending studies at discharge: Pending at discharge 04/25/22 10:28 Surgical [PTH] Routine Labs on day of discharge: Labs from last 24 hours 04/26/22 04/26/22 04/26/22 12:15 08:55 05:49 WBC RBC Hgb Hct MCV MCH MCHC RDW Plt Count MPV Immature Gran % (Auto) Neut % (Auto) Lymph % (Auto) [place] % (Auto) Eos % (Auto) Baso % (Auto) Lymph # (Auto) [place] # (Auto) Eos # (Auto) Baso # (Auto) Abs Immat Gran (auto) Absolute Neuts (auto) Absolute Nucleated RBC Nucleated RBC % Sodium 136 L Potassium 4.4 Chloride 103 Carbon Dioxide 27 Anion Gap 6 L BUN 13 Creatinine 0.70 Estim Creat Clear Calc 125 Estimated GFR > 60 Glucose 152 H POC Capillary Glucose 163 H 115 H Calcium 8.7 04/26/22 04/25/22 04/25/22 05:49 20:44 17:14 WBC 11.8 H RBC 4.30 L Hgb 13.2 L Hct 39.4 L MCV 91.6 MCH 30.7 MCHC 33.5 RDW 13.5 Plt Count 200 MPV 10.7 H Immature Gran % (Auto) 0.3 Neut % (Auto) 79.0 H Lymph % (Auto) 8.8 L [place] % (Auto) 11.7 H Eos % (Auto) 0.0 Baso % (Auto) 0.2 Lymph # (Auto) 1.04 [place] # (Auto) 1.4 H Eos # (Auto) 0.0 Baso # (Auto) 0.0 Abs Immat Gran (auto) 0.04 H Absolute Neuts (auto) 9.3 H Absolute Nucleated RBC 0.0 Nucleated RBC % 0.0 Sodium [place]
[2022-04-26 17:22] LABS: Glucose Point of Care 137 mg/dl (65-105)
[2022-04-26] MEDS: metFORMIN HCL 500 MG TABLET 1000 MG PO (17:33)
== END 2022-04-26 18:53 | disposition home or self-care (01) | DRG 331 ==
LOC: ANH3MED 13:37
PROVIDERS: Admitting Provider Surgery; PCP Family Medicine; Visit Provider Surgery
PROC: 0DTF4ZZ Resection of Right Large Intestine, Percutaneous Endoscopic Approach (ICD-10-PCS; principal; 2022-04-25 07:30)
PROC: 0WQF0ZZ Repair Abdominal Wall, Open Approach (ICD-10-PCS; 2022-04-25 07:30)
DX: D12.0 Benign neoplasm of cecum (principal); K42.9 Umbilical hernia without obstruction or gangrene; E11.9 Type 2 diabetes mellitus without complications; E78.5 Hyperlipidemia, unspecified; G47.33 Obstructive sleep apnea (adult) (pediatric); I10 Essential (primary) hypertension; I48.91 Unspecified atrial fibrillation; I25.10 Atherosclerotic heart disease of native coronary artery without angina pectoris; I25.2 Old myocardial infarction; K21.9 Gastro-esophageal reflux disease without esophagitis; Z95.5 Presence of coronary angioplasty implant and graft; Z79.82 Long term (current) use of aspirin; Z79.84 Long term (current) use of oral hypoglycemic drugs
CPT/HCPCS: 36415; 80048; 82948; 85025; 88307; 99214; A9270; C9290; G0463; J0690; J1100; J1170; J1650; J1885; J2250; J2405; J2704; J2710; J3010; J7030; J7120

== ENCOUNTER 2022-05-01 15:11 | Outpatient (CLI) | payer OTHER, SELFPAY ==
[2022-05-01 15:52] LABS: Basophils Absolute Auto 0.1 K/mm3 (0.0-0.1); Basophils Percent Auto 0.5 % (0.2-1.2); Eosinophils Absolute Auto 0.8 K/mm3 (0-0.3); Eosinophils Percent Auto 5.8 % (0-4.4); Hematocrit 40.8 % (42.0-52.0); Hemoglobin 13.2 g/dL (14.0-18.0); Immature Granulocyte Absolute 0.09 K/mm3 (0.00-0.031); Immature Granulocyte Percent A 0.7 % (0-0.5); Lymphocytes Absolute Auto 1.96 K/mm3 (0.9-3.2); Lymphocytes Percent Auto 15.2 % (18.3-44.2); Mean Corpuscular HGB Conc 32.4 g/dl (32-36); Mean Corpuscular Hemoglobin 30.1 pg (26-34); Mean Corpuscular Volume 92.9 fl (80-100); Mean Platelet Volume 11.3 fl (7.4-10.4); Monocytes Absolute Auto 1.1 K/mm3 (0.1-0.6); Monocytes Percent Auto 8.6 % (2.6-8.5); Neutrophils Absolute Auto 8.9 K/mm3 (1.3-6.7); Neutrophils Percent Auto 69.2 % (45.5-73.1); Platelet Count Result 268 k/mm3 (150-375); Red Blood Count 4.39 M/mm3 (4.6-6.20); Red Cell Distribution Width 13.2 % (11.5-14.5); White Blood Count 12.9 K/mm3 (4.5-10.0)
== END 2022-05-01 15:12 | disposition home or self-care (01) ==
PROVIDERS: PCP Family Medicine; Visit Provider Surgery
DX: D12.6 Benign neoplasm of colon, unspecified (principal)
CPT/HCPCS: 36415; 85025

== ENCOUNTER 2023-03-29 04:13 | Day surgery (SDC) | payer OTHER, SELFPAY ==
[2023-03-22 13:17] VITALS: BMI 36.3
--- NOTE | 2023-03-22 13:43 | PC.NURSE ---
Spoke with _patient___ regarding medication _Eliquis____. Pt. verbalizes understanding that the last dose of _eliquis__ to be taken on __03/26/2023___ and the Endoscopist will instruct them when to restart after the procedure.
--- NOTE | 2023-03-27 11:54 | SUR.PREOP ---
Patient called regarding upcoming procedure. Message left on patient's voicemail regarding appointment times.
[2023-03-29 12:13] VITALS: BP 138/80; PULSE 78; RESP 19; TEMP 36.2; O2SAT 99; BMI 35.1
--- NOTE | 2023-03-29 12:15 | PM.HPGS ---
History of Present Illness History of Present Illness Consent: Risks, benefits, and alternatives have been discussed and questions answered. Patient agrees to proceed with procedure. Chief complaint: hx colon polyps Narrative: Armond Agrawal is a 58 year old male Presents for follow-up screening colonoscopy. Patient had a large 3cm polyp removed from the cecum with high-grade dysplasia that was resected in April 2022. Patient reports his current weight appetite bowel movements have returned to normal. He denies any abdominal pain or bleeding. Surveillance colonoscopy advised 1 year after resection. for this reason he presents today. Review of Systems Review of Systems: All systems reviewed & are unremarkable except as noted in HPI and below PMFSH Past Medical History Medical History A-fib BMI 30.0-30.9,adult CAD (coronary artery disease) w/ stent 2014 CAD (coronary artery disease) Diabetes Diabetes type 2, controlled GERD (gastroesophageal reflux disease) History of MD (myocardial infarction) HLD (hyperlipidemia) Hypertension CRISTINA (obstructive sleep apnea) CPAP Phrenic nerve lesion s/p cardiac ablation Sleep apnea Surgical History Surgical History History of colon surgery 04/25/22 Laparoscopic right hemicolectomy with ileocolic anastomosis, da Ch[place] assisted History of coronary artery stent placement x3, 2013 History of umbilical hernia repair 04/25/22 Open 2cm umbilical hernia repair Status post ablation of atrial fibrillation Family History Family History Mother Hypertension Family history of migraine headaches Father Family history of diabetes mellitus in first degree relative Family history of heart disease in male family member before age 55 Acute myocardial infarction, Onset Age: 45 Family history of sleep apnea Diabetes mellitus Family history of cardiovascular disease Grandparent Diabetes mellitus Family history of cardiovascular disease Sibling Hypertension Social History Social History Smoking status: Never smoker Second hand tobacco smoke exposure: No Alcohol intake: current Drinks per week: 8 Alcohol use details: BEERS Substance use: never Substance use type: does not use Lack of Transportation: No Lack of Food: Never True Current Housing: I Have Housing Concerned About Future Housing: No Difficulty Paying Gas/Electric Bills: No Difficulty Paying for Meds: No Currently Unemployed: No Education: Associate Degree Difficulty w/ Childcare or Family Care: No Living arrangements: with family Occupation/Education: occupation Gender identity (if verbalized by the patient): Male Sexual Orientation (if Verbalized by the Patient): Straight or Heterosexual Spiritual care concerns: No Agree to blood products: Yes Meds Home Medications and Allergies Home Medications Medication Instructions Recorded Confirmed Type aspirin 81 mg tablet,delayed 81 mg PO DAILY 11/11/19 03/22/23 History release carvedilol 6.25 mg tablet 6.25 mg PO Q12H 11/11/19 03/29/23 History lisinopril 40 mg tablet 40 mg PO DAILY 11/11/19 03/22/23 History spironolactone 25 mg tablet 25 mg PO DAILY 04/28/20 03/22/23 History evolocumab 140 mg/mL subcutaneous 140 mg subcut .q2w 11/14/20 03/22/23 History pen injector (Repathdamion [place]) apixaban 5 mg tablet (Eliquis) 5 mg PO BID 01/23/22 03/29/23 History atorvastatin 40 mg tablet 40 mg PO DAILY 01/23/22 03/22/23 History sildenafil 100 mg tablet (Viagra) 100 mg PO DAILY PRN sexual 07/25/22 03/22/23 Rx activity #27 tabs sodium,potassium,mag sulfates 17.5 See Rx Instructions PO .COMPLEX 03/11/23 03/22/23 Rx gram-3.13 gram-1.6 gram oral soln #354 mL (Suprep Bowel Prep Kit) dulaglutide
[2023-03-29] MEDS: LACTATED RINGERS 1,000 ML 150 ML IV CONT (12:25)
[2023-03-29 12:37] LABS: Glucose Point of Care 99 mg/dl (65-105)
--- NOTE | 2023-03-29 12:42 | WPDANESEPPF ---
Anes - Initial Pre Proc Eval Procedure: Operation Date: 03/29/23 13:00 Proposed Procedures p Colonoscopy - Dharmesh Lanza MD Date/Time: 03/29/23 12:42 Surgeon: Dharmesh Lanza MD Pre Op Diagnosis: hx colon polyps Patient Data Age: 58 Gender: M Height: 1.78 m Weight: 111.1 kg Last Vital Signs Temp 36.2 C L 03/29/23 12:13 Pulse 78 03/29/23 12:13 Resp 19 03/29/23 12:13 BP 138/80 03/29/23 12:13 Pulse Ox 99 03/29/23 12:13 O2 Del Method Room Air 03/29/23 12:13 Allergies Allergy/AdvReac Type Severity Reaction Status Date / Time No Known Allergies Allergy Verified 03/29/23 12:11 Home Medications Medication Instructions Recorded Confirmed Type aspirin 81 mg tablet,delayed 81 mg PO DAILY 11/11/19 03/22/23 History release carvedilol 6.25 mg tablet 6.25 mg PO Q12H 11/11/19 03/29/23 History lisinopril 40 mg tablet 40 mg PO DAILY 11/11/19 03/22/23 History spironolactone 25 mg tablet 25 mg PO DAILY 04/28/20 03/22/23 History evolocumab 140 mg/mL subcutaneous 140 mg subcut .q2w 11/14/20 03/22/23 History pen injector (Repatha SureClick) apixaban 5 mg tablet (Eliquis) 5 mg PO BID 01/23/22 03/29/23 History atorvastatin 40 mg tablet 40 mg PO DAILY 01/23/22 03/22/23 History sildenafil 100 mg tablet (Viagra) 100 mg PO DAILY PRN sexual 07/25/22 03/22/23 Rx activity #27 tabs sodium,potassium,mag sulfates 17.5 See Rx Instructions PO .COMPLEX 03/11/23 03/22/23 Rx gram-3.13 gram-1.6 gram oral soln #354 mL (Suprep Bowel Prep Kit) dulaglutide 0.75 mg/0.5 mL 0.75 mg (0.5 mL) subcut WEEKLY 90 03/19/23 03/22/23 Rx subcutaneous pen injector days #6.5 mL (Trulicity) metformin 500 mg tablet 1,000 mg PO BID #360 tabs 03/19/23 03/22/23 Rx Laboratory Tests 03/29/23 12:35 POC Capillary Glucose 99 mg/dl (65-105) Patient hx anesthesia problems: none Family hx anesthesia problems: none Results Review: All pre-operative results and documents have been reviewed as part of the pre-operative evaluation. [facility] Past Medical History Medical History A-fib BMI 30.0-30.9,adult CAD (coronary artery disease) w/ stent 2014 CAD (coronary artery disease) Diabetes Diabetes type 2, controlled GERD (gastroesophageal reflux disease) History of MS (myocardial infarction) HLD (hyperlipidemia) Hypertension CRISTINA (obstructive sleep apnea) CPAP Phrenic nerve lesion s/p cardiac ablation Sleep apnea Surgical History Surgical History History of colon surgery 04/25/22 Laparoscopic right hemicolectomy with ileocolic anastomosis, da [place] assisted History of coronary artery stent placement x3, 2013 History of umbilical hernia repair 04/25/22 Open 2cm umbilical hernia repair Status post ablation of atrial fibrillation Family History Family History Mother Hypertension Family history of migraine headaches Father Family history of diabetes mellitus in first degree relative Family history of heart disease in male family member before age 55 Acute myocardial infarction, Onset Age: 45 Family history of sleep apnea Diabetes mellitus Family history of cardiovascular disease Grandparent Diabetes mellitus Family history of cardiovascular disease Sibling Hypertension Social History Social History Smoking status: Never smoker Second hand tobacco smoke exposure: No Alcohol intake: current Drinks per week: 8 Alcohol use details: BEERS Substance use: never Substance use type: does not use Lack of Transportation: No Lack of Food: Never True Current Housing: I Have Housing Concerned About Future Housing: No Difficulty Paying Gas/Electric Bills: No Difficulty Paying for Meds: No Currently Unemployed: No Education: Associate Degree Diff
[2023-03-29 13:04] VITALS: BP 124/72; PULSE 69; RESP 19; O2SAT 99
[2023-03-29 13:44] VITALS: BP 121/70; PULSE 83; RESP 20; O2SAT 99
[2023-03-29 13:54] VITALS: BP 118/69; PULSE 76; RESP 20; O2SAT 99
== END 2023-03-29 14:13 | disposition home or self-care (01) ==
PROVIDERS: PCP Family Medicine; Visit Provider Internal Medicine Gastroenterology
PROC: 0DJD8ZZ Inspection of Lower Intestinal Tract, Via Natural or Artificial Opening Endoscopic (ICD-10-PCS; CPT 45378; principal; 2023-03-29 13:00)
DX: Z12.11 Encounter for screening for malignant neoplasm of colon (principal); Z86.010 Personal history of colon polyps; K63.89 Other specified diseases of intestine; K64.8 Other hemorrhoids; I25.10 Atherosclerotic heart disease of native coronary artery without angina pectoris; E11.9 Type 2 diabetes mellitus without complications; K21.9 Gastro-esophageal reflux disease without esophagitis; E78.5 Hyperlipidemia, unspecified; I10 Essential (primary) hypertension; I48.91 Unspecified atrial fibrillation; G47.33 Obstructive sleep apnea (adult) (pediatric)
CPT/HCPCS: 45378; 82948; J7120

== ENCOUNTER 2024-03-24 18:30 | Emergency (ER) | payer OTHER, SELFPAY ==
--- NOTE | ~2024-03-24 | XR_ITS ---
EXAMINATION: XR chest 2V Exam Date/Time: 03/24/2024 18:45 [employer] OPERATOR HISTORY: chest pain MID STERNAL CP LENO SEWER Comparison: 03/01/2018. RESULT: Lines, tubes, and devices: Cholecystomy clips. Lungs and pleura: Clear. Cardiomediastinal silhouette: Stable. Other: No acute osseous or upper abdominal finding. IMPRESSION: No acute cardiopulmonary process. Reviewed, dictated and finalized at location K. [employer]LE[employer] SYSTEM OPERATOR
--- NOTE | 2024-03-24 18:32 | ECG_ITS ---
Test Date: 2024-03-24 18:35:29 Measurements Intervals [place] Rate: 82 P: 69 MA: 163 QRS: 20 QRSD: 85 T: 52 QT: 348 QTc: 408 Interpretive Statements SINUS RHYTHM No previous ECG available for comparison Electronically Signed On 03-25-2024 11:48:35 PERFUSIONIST by Garcia Hilario
--- NOTE | 2024-03-24 18:34 | ED.CHESTPAIN ---
HPI - Chest Pain General Chief Complaint: Chest Pain <Viviane Vega PA-C - Last Filed: 03/25/24 14:39> Stated Complaint: chest pain <Viviane Vega PA-C - Last Filed: 03/25/24 14:39> Time Seen by Provider: 03/24/24 18:34 <Viviane Vega PA-C - Last Filed: 03/25/24 14:39> Focused HPI: This is a 59 year old male that presents to the ER for episodes of chest pain. Ongoing since last night. The pain is dull in nature. Reports history of MO. His men's golf coach is Dr. Yanes. Denies shortness of breath GENERAL: Well-appearing, well-nourished, and in no acute distress. HEAD: Normocephalic, atraumatic. CHEST: Clear to auscultation. ?No respiratory distress. HEART: Regular rate and rhythm.? NEURO: ?Alert and oriented x3. Patient screened in triage and initial orders placed.? ?Additional care and disposition to be based upon?diagnostic testing and treatment. <Viviane Vega PA-C - Last Filed: 03/25/24 14:39> History of Present Illness HPI narrative: Agree with the above with the following corrections/additions: Patient presents with intermittent midsternal chest pain that started last night at rest that felt similar to when he had a heart attack 10 years ago. Takes 81mg aspirin at home. Pain was 5/10 upon arrival, now 1/10. No associated SOB, N/V, diaphoresis, F/C, cough, lower extremity edema. He has 3 previous stents, each placed within 100 days of the other for blockages of 100% and two that were 50-70%. Cardioogist Dr Yanes whom he last saw 3-5 months ago. Last stress test 2 years ago and reportedly normal. Also history of Afib s/p cardioversion x2 followed by an ablation at [facility] with resolution of the arrhythmia but which left him with a partially collapsed right lung. Cardiac risk factors: HTN +, HLD + (well controlled), prior MO +, prior TIA / CVA (-), DM + not on insulin; obese +, non smoker, family history + with father MO at 53 years old and open heart surgery x3. <Shilpa Blackman MD - Last Filed: 03/26/24 03:19> Related Data Home Medications: Home Medications ?Medication ?Instructions ?Recorded ?Confirmed ?Last Taken ?Type aspirin 81 mg tablet,delayed 81 mg PO DAILY 11/11/19 06/04/23 04/25/22 04:00 History release carvedilol 6.25 mg tablet 6.25 mg PO Q12H 11/11/19 06/04/23 03/29/23 07:00 History lisinopril 40 mg tablet 40 mg PO DAILY 11/11/19 06/04/23 04/24/22 History spironolactone 25 mg tablet 25 mg PO DAILY 04/28/20 06/04/23 04/24/22 History evolocumab 140 mg/mL subcutaneous 140 mg subcut .q2w 11/14/20 06/04/23 03/29/22 History pen injector (Repatha SureClick) apixaban 5 mg tablet (Eliquis) 5 mg PO BID 01/23/22 06/04/23 03/26/23 09:00 History atorvastatin 40 mg tablet 40 mg PO DAILY 01/23/22 06/04/23 04/24/22 History <Viviane Vega PA-C - Last Filed: 03/25/24 14:39> Allergies/Adverse Reactions: Allergies Allergy/AdvReac Type Severity Reaction Status Date / Time No Known Allergies Allergy Verified 03/24/24 18:43 <Viviane Vega PA-C - Last Filed: 03/25/24 14:39> Review of Systems Review of Systems: All systems reviewed & are unremarkable except as noted in HPI and below <Viviane Vega PA-C - Last Filed: 03/25/24 14:39> PMFSH Past Medical History Medical History: Medical History Diabetes type 2, controlled GERD (gastroesophageal reflux disease) CRISTINA (obstructive sleep apnea) CPAP Phrenic nerve lesion s/p cardiac ablation A-fib resolved BMI 30.0-30.9,adult Diabetes HLD (hyperlipidemia) History of MO (myocardial infarction) 2013 Hypertension CAD (coronary artery disease) w/ stent 2014 Sleep apnea <Viviane Vega PA-C - Last Filed: 03/25/24 14:39> Surgical History Surgical History: Surgical History (Updated 03/26/24 @ 03:14 by Shilpa Blackman MD) History of umbilical hernia repair 04/25/22 Open 2cm umbilical hernia repair History of colon surgery 04/25/22 Laparoscopic right hemicolectomy with ileocolic anastomosis, da [place] assisted History of coronary artery stent placement x3 (2 at [place], 1 at [facility]), 2013 or 2014; Status post ablation of atrial fibrillation <Viviane Vega PA-C - Last Filed: 03/25/24 14:39> Family History Family History: Family History (Updated 03/26/24 @ 03:13 by Shilpa Blackman MD) Mother Hypertension Family history of migraine headaches Father Family history of diabetes mellitus in first degree relative Family history of heart disease in male family member before age 55 Acute myocardial infarction, Onset Age: 53 Family history of sleep apnea Diabetes mellitus Family history of cardiovascular disease History of open heart surgery x3 Grandparent Diabetes mellitus Family history of cardiovascular disease Sibling Hypertension <Viviane Vega PA-C - Last Filed: 03/25/24 14:39> Social History Social History: Social History Smoking status: Never smoker Second hand tobacco smoke exposure: No Alcohol intake: current Drinks per week: 8 Alcohol use details: BEERS Substance use: never Substance use type: does not use Lack of Transportation: No Lack of Food: Never True Current Housing: I Have Housing Concerned About Future Housing: No Difficulty Paying Gas/Electric Bills: No Difficulty Paying for Meds: No Currently Unemployed: No Education: Associate Degree Difficulty w/ Childcare or Family Care: No Living arrangements: with family Occupation/Education: occupation Gender identity (if verbalized by the patient): Male Sexual Orientation (if Verbalized by the Patient): Straight or Heterosexual Spiritual care concerns: No Agree to blood products: Yes <Viviane Vega PA-C - Last Filed: 03/25/24 14:39> Exam Const: General: healthy appearing, no acute distress and alert; No confusion, diaphoretic or ill appearing <Shilpa Blackman MD - Last Filed: 03/26/24 03:19> Nutritional Appearance: well nourished and obese <Shilpa Blackman MD - Last Filed: 03/26/24 03:19> Orientation/consciousness: patient oriented x3 <Shilpa Blackman MD - Last Filed: 03/26/24 03:19> Limitations: no limitations <Shilpa Blackman MD - Last Filed: 03/26/24 03:19> HENMT: Head: normal to inspection <Shilpa Blackman MD - Last Filed: 03/26/24 03:19> Face/Nose/Sinus: Normal external nose present <Shilpa Blackman MD - Last Filed: 03/26/24 03:19> Face and sinus: normal facial exam <Shilpa Blackman MD - Last Filed: 03/26/24 03:19> Other: gross auditory acuity intact <Shilpa Blackman MD - Last Filed: 03/26/24 03:19> Eyes: Direct Ophthalmoscopy: no photophobia <Shilpa Blackman MD - Last Filed: 03/26/24 03:19> Other: non injected, non icteric <Shilpa Blackman MD - Last Filed: 03/26/24 03:19> Neck: Neck: normal visual inspection and no meningeal signs <Shilpa Blackman MD - Last Filed: 03/26/24 03:19> Chest: Chest palpation & inspection: normal inspection of the chest and no tenderness <Shilpa Blackman MD - Last Filed: 03/26/24 03:19> Resp: Effort & Inspection: normal respiratory effort, not labored, no retractions, not tachypneic and no use of accessory muscles <Shilpa Blackman MD - Last Filed: 03/26/24 03:19> Auscultation: clear to auscultation bilaterally, no crackles, no rales, no rhonchi and no wheezes <MD Gregoria Watson Last Filed: 03/26/24 03:19> Cardio: Rate: regular rate <Shilpa Blackman MD - Last Filed: 03/26/24 03:19> Rhythm: regular rhythm <Shilpa Blackman MD - Last Filed: 03/26/24 03:19> GI: Inspection: non-distended <Shilpa Blackman MD - Last Filed: 03/26/24 03:19> GI Palp: Yes Soft to palpation <Shilpa Blackman MD - Last Filed: 03/26/24 03:19> Skin: General skin exam: normal color, no jaundice and no pallor <Shilpa Blackman MD - Last Filed: 03/26/24 03:19> Neuro: General: patient oriented x3, moves all extremities, no meningeal signs and no focal motor deficits <Shilpa Blackman MD - Last Filed: 03/26/24 03:19> Speech: normal speech <Shilpa Blackman MD - Last Filed: 03/26/24 03:19> Extrem: General: normal to inspection and no edema <Shilpa Blackman MD - Last Filed: 03/26/24 03:19> Psych: Mental Status: mental status grossly normal <Shilpa Blackman MD - Last Filed: 03/26/24 03:19> Affect: normal affect, No Sad affect present and No Anxious affect present <Shilpa Blackman MD - Last Filed: 03/26/24 03:19> Attitude: cooperative <Shilpa Blackman MD - Last Filed: 03/26/24 03:19> Course Vital Signs Vital signs: Vital Signs Temperature 97.5 F L 03/24/24 18:39 Pulse Rate 75 03/24/24 18:39 Respiratory Rate 16 03/24/24 18:39 Blood Pressure 133/78 03/24/24 18:39 Pulse Oximetry 99 03/24/24 18:39 Oxygen Delivery Room Air 03/24/24 18:39 Temperature 97.5 F L 03/24/24 18:39 Pulse Rate 68 03/24/24 23:28 Respiratory Rate 17 03/24/24 23:28 Blood Pressure 115/74 03/24/24 23:28 Pulse Oximetry 96 03/24/24 23:28 Oxygen Delivery Room Air 03/24/24 21:01 <Viviane Vega PA-C - Last Filed: 03/25/24 14:39> Vital Signs Temperature 97.5 F L 03/24/24 18:39 Pulse Rate 75 03/24/24 18:39 Respiratory Rate 16 03/24/24 18:39 Blood Pressure 133/78 03/24/24 18:39 Pulse Oximetry 99 03/24/24 18:39 Oxygen Delivery Room Air 03/24/24 18:39 Temperature 97.5 F L 03/24/24 18:39 Pulse Rate 68 03/24/24 23:28 Respiratory Rate 17 03/24/24 23:28 Blood Pressure 115/74 03/24/24 23:28 Pulse Oximetry 96 03/24/24 23:28 Oxygen Delivery Room Air 03/24/24 21:01 <Shilpa Blackman MD - Last Filed: 03/26/24 03:19> MDM - Chest Pain MDM Narrative Medical decision making narrative: Patient presents with intermittent chest pain occuring since yesterday. In the emergency department they are afebrile with vital signs within normal limits. Hyperbilirubminemia but not jaundiced. HEART SCORE History 2 highly suspicious 1 moderately suspicious 0 slightly suspicious History score [address] depression/elevation not due to LBBB, LVH, or digoxin [address] depression but LBBB, LVH, nonspecific repolarization changes 0 normal ECG score 0 Age 2 >/= 65 1 45-64 0 <45 Age score 1 Risk factors (HTN, hypercholesterolemia, DM, obesity with BMI >30, current smoker or cessation </=3mo), positive fam hx with parent or sibling with CVD before age 65, atherosclerotic disease (prior MO, PCI/CABG, CVA/TIA, or peripheral arterial disease) 2 >/= 3 risk factors or history of atherosclerotic dz 1 - 1-2 risk factors 0 no known risk factors Risk factor score 2 Hypertension, hyperlipidemia, prior MO, diabetes, obese, family history) Initial Troponin 2 >3 times normal limit 1 1-3 times normal limit 0 less than or equal to normal limit Troponin score 0 Total HEART Score 4. High Risk, 12-65% day MACE. I am concerned about unstable angina. Discussed with hospitalist. Recommends discussing with cardiology. Cardiology consultation and admission recommended for further testing. Reviewed all of this with Dr. Jennings. She would want to know that patient is absolutely chest pain free and, if so, if he feels comfortable with it, discharge home plans to follow-up in the outpatient setting and arrange an outpatient stress test with Dr Yanes. She also takes his contact information so she can follow up to make sure this has happened. Alternatively, she does note that if he has any chest pain at all remaining, even a twinge, he should be admitted for further workup. Reassessed patient at 11:05 p.m. he does state that his chest pain has completely resolved. He feels very comfortable with the plan as above and is given strict emergency department return precautions when he she his verifies understanding. They are in agreement. Stable for discharge. He does note that because it was years he last uses nitroglycerin he would need a refill of this medication. <Shilpa Blackman MD - Last Filed: 03/26/24 03:19> Differential Diagnosis Differential diagnosis: Likely stable angina, unstable angina pectoris, atypical chest pain, st elevation myocardial infarction, chest pain and biliary colic <Shilpa Blackman MD - Last Filed: 03/26/24 03:19> Medical Records Data Medical records narrative: Stress test 2020 no significant ischemia but hypokinesis had been present. Negative EKG portion of stress test. <Shilpa Blackman MD - Last Filed: 03/26/24 03:19> Lab Data Attestation: I reviewed the patient's lab results. <Shilpa Blackman MD - Last Filed: 03/26/24 03:19> Result diagrams: 03/24/24 18:46 03/24/24 18:46 <Viviane Vega PA-C - Last Filed: 03/25/24 14:39> Labs: Lab Results 03/24/24 03/24/24 Range/Units 18:46 21:34 WBC 7.9 (4.5-10.0) K/mm3 RBC 4.95 (4.6-6.20) M/mm3 Hgb 15.5 (14.0-18.0) g/dL Hct 46.2 (42.0-52.0) % MCV 93.3 (80-100) fl MCH 31.3 (26-34) pg MCHC 33.5 (32-36) g/dl RDW 13.1 (11.5-14.5) % Plt Count 204 (150-375) k/mm3 MPV 10.5 H (7.4-10.4) fl Immature Gran % (Auto) 0.3 (0-0.5) % Neut % (Auto) 38.8 L (45.5-73.1) % Lymph % (Auto) 47.9 H (18.3-44.2) % [place] % (Auto) 12.2 H (2.6-8.5) % Eos % (Auto) 0.4 (0-4.4) % Baso % (Auto) 0.4 (0.2-1.2) % Lymph # (Auto) 3.80 H (0.9-3.2) K/mm3 [place] # (Auto) 1.0 H (0.1-0.6) K/mm3 Eos # (Auto) 0.0 (0-0.3) K/mm3 Baso # (Auto) 0.0 (0.0-0.1) K/mm3 Abs Immat Gran (auto) 0.02 (0.00-0.031) K/mm3 Absolute Neuts (auto) 3.1 (1.3-6.7) K/mm3 Absolute Nucleated RBC 0.000 (0.0-0.012) K/mm3 Nucleated RBC % 0.0 (0.0-0.2) % PT 14.1 (11.1-14.7) Seconds INR 1.1 APTT 28.6 (22.3-36.8) Seconds Sodium 136 L (137-145) mmol/L Potassium 4.5 (3.4-5.0) mmol/L Chloride 101 (98-107) mmol/L Carbon Dioxide 27 (22-30) mmol/L Anion Gap 8 (4-12) mmol/L BUN 19 (9-20) mg/dL Creatinine 1.00 (0.7-1.3) mg/dL Estim Creat Clear Calc 85 ml/min Estimated GFR > 60 (59 - ) Glucose 127 H (65-110) mg/dL Calcium 10.3 H (8.4-10.2) mg/dL Total Bilirubin 3.5 H (0.2-1.3) mg/dL AST 27 (17-59) U/L ALT 26 (6-50) U/L Alkaline Phosphatase 94 (38-126) U/L Troponin I < 0.012 < 0.012 (0.000-0.034) ng/mL Total Protein 8.0 (6.3-8.2) g/dL Albumin 4.8 (3.5-5.1) g/dL Lipase 223 (23-300) U/L <Viviane Vega PA-C - Last Filed: 03/25/24 14:39> Lab Results 03/24/24 03/24/24 Range/Units 18:46 21:34 WBC 7.9 (4.5-10.0) K/mm3 RBC 4.95 (4.6-6.20) M/mm3 Hgb 15.5 (14.0-18.0) g/dL Hct 46.2 (42.0-52.0) % MCV 93.3 (80-100) fl MCH 31.3 (26-34) pg MCHC 33.5 (32-36) g/dl RDW 13.1 (11.5-14.5) % Plt Count 204 (150-375) k/mm3 MPV 10.5 H (7.4-10.4) fl Immature Gran % (Auto) 0.3 (0-0.5) % Neut % (Auto) 38.8 L (45.5-73.1) % Lymph % (Auto) 47.9 H (18.3-44.2) % [place] % (Auto) 12.2 H (2.6-8.5) % Eos % (Auto) 0.4 (0-4.4) % Baso % (Auto) 0.4 (0.2-1.2) % Lymph # (Auto) 3.80 H (0.9-3.2) K/mm3 [place] # (Auto) 1.0 H (0.1-0.6) K/mm3 Eos # (Auto) 0.0 (0-0.3) K/mm3 Baso # (Auto) 0.0 (0.0-0.1) K/mm3 Abs Immat Gran (auto) 0.02 (0.00-0.031) K/mm3 Absolute Neuts (auto) 3.1 (1.3-6.7) K/mm3 Absolute Nucleated RBC 0.000 (0.0-0.012) K/mm3 Nucleated RBC % 0.0 (0.0-0.2) % PT 14.1 (11.1-14.7) Seconds INR 1.1 APTT 28.6 (22.3-36.8) Seconds Sodium 136 L (137-145) mmol/L Potassium 4.5 (3.4-5.0) mmol/L Chloride 101 (98-107) mmol/L Carbon Dioxide 27 (22-30) mmol/L Anion Gap 8 (4-12) mmol/L BUN 19 (9-20) mg/dL Creatinine 1.00 (0.7-1.3) mg/dL Estim Creat Clear Calc 85 ml/min Estimated GFR > 60 (59 - ) Glucose 127 H (65-110) mg/dL Calcium 10.3 H (8.4-10.2) mg/dL Total Bilirubin 3.5 H (0.2-1.3) mg/dL AST 27 (17-59) U/L ALT 26 (6-50) U/L Alkaline Phosphatase 94 (38-126) U/L Troponin I < 0.012 < 0.012 (0.000-0.034) ng/mL Total Protein 8.0 (6.3-8.2) g/dL Albumin 4.8 (3.5-5.1) g/dL Lipase 223 (23-300) U/L <Shilpa Blackman MD - Last Filed: 03/26/24 03:19> Imaging Data Radiologist's impression: Impressions Chest X-Ray 03/24/24 19:23 IMPRESSION: No acute cardiopulmonary process. <Shilpa Blackman MD - Last Filed: 03/26/24 03:19> ECG Data EKG #1: Attestation: I personally reviewed and interpreted this ECG as follows: <Shilpa Blackman MD - Last Filed: 03/26/24 03:19> ECG completion date: 03/24/24 <Shilpa Blackman MD - Last Filed: 03/26/24 03:19> ECG completion time: 18:35 <Shilpa Blackman MD - Last Filed: 03/26/24 03:19> Interpretation: Normal sinus rhythm at a rate of 82 beats per minute. HI interval 163. QRS 85. QT/ QTC 348/387. Good R-wave progression across the precordial leads. No T-wave inversions. <Shilpa Blackman MD - Last Filed: 03/26/24 03:19> EKG #2: Attestation: I personally reviewed and interpreted this ECG as follows: <Shilpa Blackman MD - Last Filed: 03/26/24 03:19> ECG completion date: 03/24/24 <Shilpa Blackman MD - Last Filed: 03/26/24 03:19> ECG completion time: 21:59 <Shilpa lBackman MD - Last Filed: 03/26/24 03:19> Interpretation: normal sinus rhythm at a rate of 66 beats per minute. HI interval 154. QRS 89. QT/QTC 386/399. Good R-wave progression across the precordial leads. Isolated T-wave inversion in lead 3 but otherwise upright in normal in contiguous leads 2 and AVF. No other T-wave inversions. <Shilpa Blackman MD - Last Filed: 03/26/24 03:19> Critical Care Time Critical Care Time Critical Care Time: No <Viviane Vega PA-C - Last Filed: 03/25/24 14:39> Discharge Plan Discharge Clinical Impression: Chest pain <Viviane Vega PA-C - Last Filed: 03/25/24 14:39> Patient Disposition: Home, Self-Care <Viviane Vega PA-C - Last Filed: 03/25/24 14:39> Condition: Stable <Viviane Vega PA-C - Last Filed: 03/25/24 14:39> Instructions: Antibiotic Form, Chest Pain (ED) <Viviane Vega PA-C - Last Filed: 03/25/24 14:39> Additional Instructions: as we discussed, please follow-up with your men's golf coach to arrange an outpatient stress test. If there are any difficulties, alternatively you can follow-up with the other men's golf coach listed below. Return to the emergency department with any new / worsening/unmanaged symptoms. You are being prescribed a refill of nitroglycerin but DO NOT take this medication if you are taking sildenafil/Viagra. <Viviane Vega PA-C - Last Filed: 03/25/24 14:39> Patient Language: Romanian <Viviane Vega PA-C - Last Filed: 03/25/24 14:39> Prescriptions: New nitroglycerin 0.4 mg tablet, sublingual 0.4 mg sublingual Q5M PRN (Reason: chest pain) Qty: 30 0RF Rx Instructions: do not exceed 3 doses per episode No Action aspirin 81 mg tablet,delayed release (DR/EC) 81 mg PO DAILY Patient Comments: QAM carvedilol 6.25 mg tablet 6.25 mg PO Q12H Rx Instructions: must administer with a meal/food lisinopril 40 mg tablet 40 mg PO DAILY spironolactone 25 mg tablet 25 mg PO DAILY Repatha SureClick 140 mg/mL pen injector 140 mg subcut .q2w Patient Comments: TAKES ON & 15 Jardiance 10 mg tablet 10 mg PO QAM Qty: 90 0RF (DME) blood-glucose meter Misc See Rx Instructions .Route Qty: 1 0RF Rx Instructions: As directed daily (DME) Blood Glucose Test Strip See Rx Instructions .Route Qty: 100 11RF Rx Instructions: As directed daily atorvastatin 40 mg tablet 40 mg PO DAILY Eliquis 5 mg tablet 5 mg PO BID sildenafil [Viagra] 100 mg tablet 100 mg PO DAILY PRN (Reason: sexual activity) Qty: 27 3RF Rx Instructions: administer 30 minutes to 4 hours before activity metformin 500 mg tablet 1,000 mg PO BID Qty: 360 3RF Trulicity 0.75 mg/0.5 mL pen injector 0.75 mg subcut WEEKLY 90 Days Qty: 6.5 3RF <Viviane Vega PA-C - Last Filed: 03/25/24 14:39> Follow-up/Referrals: Jordan Yanes [Other] Manuela Jennings [Other] Neena Sands MD [Primary Care Provider] - <Viviane Vega PA-C - Last Filed: 03/25/24 14:39> Stand Alone Forms: Work/School Release IP <Viviane Vega PA-C - Last Filed: 03/25/24 14:39> Time of Disposition: 23:11 <Viviane Vega PA-C - Last Filed: 03/25/24 14:39> 23:11 <Shilpa Blackman MD - Last Filed: 03/26/24 03:19>
[2024-03-24 18:39] VITALS: BP 133/78; PULSE 75; RESP 16; TEMP 36.4; O2SAT 99
[2024-03-24 18:54] LABS: Basophils Percent Auto 0.4 % (0.2-1.2); Eosinophils Percent Auto 0.4 % (0-4.4); Hematocrit 46.2 % (42.0-52.0); Hemoglobin 15.5 g/dL (14.0-18.0); Immature Granulocyte Absolute 0.02 K/mm3 (0.00-0.031); Immature Granulocyte Percent A 0.3 % (0-0.5); Lymphocytes Percent Auto 47.9 % (18.3-44.2); Mean Corpuscular HGB Conc 33.5 g/dl (32-36); Mean Corpuscular Hemoglobin 31.3 pg (26-34); Mean Corpuscular Volume 93.3 fl (80-100); Mean Platelet Volume 10.5 fl (7.4-10.4); Monocytes Percent Auto 12.2 % (2.6-8.5); Neutrophils Absolute Auto 3.1 K/mm3 (1.3-6.7); Neutrophils Percent Auto 38.8 % (45.5-73.1); Platelet Count Result 204 k/mm3 (150-375); Red Blood Count 4.95 M/mm3 (4.6-6.20); Red Cell Distribution Width 13.1 % (11.5-14.5); White Blood Count 7.9 K/mm3 (4.5-10.0)
[2024-03-24 19:03] LABS: Alanine Aminotransferase 26 U/L (6-50); Albumin Level 4.8 g/dL (3.5-5.1); Alkaline Phosphatase 94 U/L (38-126); Anion Gap 8 mmol/L (4-12); Aspartate Amino Transferase 27 U/L (17-59); Bilirubin,Total 3.5 mg/dL (0.2-1.3); Blood Urea Nitrogen 19 mg/dL (9-20); Calcium 10.3 mg/dL (8.4-10.2); Carbon Dioxide 27 mmol/L (22-30); Chloride 101 mmol/L (98-107); Estimated CRCL calculation 85 ml/min; Estimated Glomerular Filt Rate > 60; Glucose 127 mg/dL (65-110); Lipase 223 U/L (23-300); Potassium 4.5 mmol/L (3.4-5.0); Sodium 136 mmol/L (137-145)
[2024-03-24 19:04] LABS: INR 1.1; Partial Thromboplastin Time 28.6 Seconds (22.3-36.8); Prothrombin Time 14.1 Seconds (11.1-14.7)
[2024-03-24 19:15] LABS: Troponin I < 0.012 ng/mL (0.000-0.034)
[2024-03-24 21:00] VITALS: BP 127/80; PULSE 70; RESP 18; O2SAT 97
[2024-03-24] MEDS: ASPIRIN 81 MG CHEWABLE TABLET 324 MG PO (21:04)
--- NOTE | 2024-03-24 21:28 | ECG_ITS ---
Test Date: 2024-03-24 21:59:03 Measurements Intervals [place] Rate: 66 P: 30 IA: 154 QRS: -1 QRSD: 89 T: 16 QT: 386 QTc: 405 Interpretive Statements SINUS RHYTHM Compared to ECG 03/24/2024 18:35:29 No significant changes Electronically Signed On 03-25-2024 18:47:50 DIRECTOR OF HEAD START by Garcia Hilario
[2024-03-24 22:13] LABS: Troponin I < 0.012 ng/mL (0.000-0.034)
[2024-03-24 23:28] VITALS: BP 115/74; PULSE 68; RESP 17; O2SAT 96
== END 2024-03-24 23:29 | disposition home or self-care (01) ==
PROVIDERS: Student in an Organized Health Care Education/Training Program; Emergency Provider Student in an Organized Health Care Education/Training Program; PCP Family Medicine
DX: R07.9 Chest pain, unspecified (principal); K21.9 Gastro-esophageal reflux disease without esophagitis; E11.9 Type 2 diabetes mellitus without complications; G73.3 Myasthenic syndromes in other diseases classified elsewhere; Z99.89 Dependence on other enabling machines and devices; E78.5 Hyperlipidemia, unspecified; I25.2 Old myocardial infarction; I10 Essential (primary) hypertension; I25.10 Atherosclerotic heart disease of native coronary artery without angina pectoris
CPT/HCPCS: 36415; 71046; 80053; 83690; 84484; 85025; 85610; 85730; 93005; 99284; A9270